=== PATIENT | male | born 1975 | race Caucasian/White ===

== ENCOUNTER 2017-11-07 15:13 | Emergency (ER) | payer MEDICAID, OTHER ==
[~2017-11-07] VITALS: Ht 193 cm; Wt 83.9 kg
[~2017-11-07 15:13] MED LIST: AMOX-999 PO; FLOR250 PO; FLUO-387 PO; [UNRECOGNIZED DRUG - CODE] PO
[2017-11-07 15:29] VITALS: BP 158/100
--- NOTE | 2017-11-07 15:33 | NUR ---
patient in no distress. not anxious at this time. dr. medeiros made aware. patient to lobby via w/c
--- NOTE | 2017-11-07 16:22 | NUR ---
watching tv in the lobby
--- NOTE | 2017-11-07 17:30 | NUR ---
TRIED TO TAKE PATIENT INSIDE TO OF BUT REFUSED.
[2017-11-07] MEDS ORDERED: HALOPERIDOL 5 MG TAB PO SCH (18:20)
[2017-11-07] MEDS ORDERED: LORazepam 1 MG TAB PO ONE (18:20)
--- NOTE | 2017-11-07 18:25 | NUR ---
PT TO RADIOLOGY VIA WHEELCHAIR
--- NOTE | 2017-11-07 18:25 | NUR ---
DENIES SUICIDAL/HOMICIDAL IDEATION DENIES AUDITORY/VISUAL HALLUCINATIONS
--- NOTE | 2017-11-07 18:26 | NUR ---
PT TO OVERFLOW 1
--- NOTE | 2017-11-07 18:35 | NUR ---
RETURNED FROM RADIOLOGY
--- NOTE | 2017-11-07 18:37 | NUR ---
HALDOL NOT AVAILABLE IN ER STOCK---HOUSE SUP IS ATTEMPTING TO LOCATE IN OTHER AREAS--MD AWARE
--- NOTE | 2017-11-07 18:50 | NUR ---
BLOOD SAMPLE COLLECTED---LAB PICKED UP
[2017-11-07 18:56] LABS: APPEARANCE,URINE CLEAR (CLEAR); BILIRUBIN,URINE NEGATIVE (NEGATIVE); BLOOD, URINE NEGATIVE (NEGATIVE); COLOR,URINE YELLOW (YELLOW); LEUKOCYTE ESTERASE ,URINE NEGATIVE (NEGATIVE); NITRITE, URINE NEGATIVE (NEGATIVE); UGLUCOSE NEGATIVE (NEGATIVE)
[2017-11-07 19:00] LABS: BARBITURATE, URINE NEG. ng/ml (NEG <=200); BENZODIAZEPINE, URINE NEG. ng/mL (NEG <=200); CANNABINOID, URINE NEG. ng/mL (NEG <=50); COCAINE, URINE NEG. ng/mL (NEG <=300); OPIATE, URINE NEG. ng/mL (NEG <=2000); PHENCYCLIDINE SCREEN,URINE NEG. ng/mL (NEG <=25); RBC,URINE 0-5 (RARE) /HPF (0-5)
[2017-11-07 19:11] VITALS: BP 161/68
[2017-11-07 19:11] LABS: ANION GAP 11.6 (8-16); CARBON DIOXIDE 28.9 mmol/L (21-32); CHLORIDE 102 mmol/L (98-107); CREATININE 0.9 mg/dL (0.7-1.3); GFR ARICAN-AMERICAN 119 mL/min (>90); GLUCOSE 106 mg/dL (74-106); POTASSIUM 3.5 mmol/L (3.5-5.1); SODIUM SERUM 139 mmol/L (136-145); UREA NITROGEN, BLOOD 12 mg/dL (7-18)
--- NOTE | 2017-11-07 19:12 | NUR ---
FOLLOWS INSTRUCTIONS WITH REDIRECTION---BECOMES LOUD AND OFFENSIVE
[2017-11-07 19:18] LABS: ASPARTATE AMINOTRANSFERASE 21 U/L (15-37); TOTAL BILIRUBIN 0.6 mg/dL (0.0-1.0)
--- NOTE | 2017-11-07 19:23 | NUR ---
PT W/C ASSISTED TO BED 2.
--- NOTE | 2017-11-07 19:28 | NUR ---
GOT REPORT FROM ANAIS DE LEON. PT. RESTING IN BED, EPISODE OF YELLING. ER MADE PISANO OF PT. STATUS.
--- NOTE | 2017-11-07 19:30 | NUR ---
PT. EPISODE OF AGGRESSIVENESS, YELLING. DR. MANNING MADE AWARE.
[2017-11-07 19:35] LABS: ACETAMINOPHEN < 0.5 ug/ml (10-30); SALICYLATE < 2.8 mg/dL (2.8-20.0)
--- NOTE | 2017-11-07 19:45 | NUR ---
PT. WALKED OUT OF THE ED, ANAIS RIBEIROBREAD SLICER MACHINE CALLED PD AT THIS TIME.
--- NOTE | 2017-11-07 19:50 | NUR ---
PATIENT ELOPED FROM FACILITY. DISCHARGE INSTRUCTIONS NOT GIVEN TO PATIENT. DR. FALL NOTIFIED.
== END 2017-11-07 19:50 | disposition left against medical advice (07) ==
LOC: MED 15:13
DX: F41.9 Anxiety disorder, unspecified (principal); F14.90 Cocaine use, unspecified, uncomplicated; F11.90 Opioid use, unspecified, uncomplicated; Z59.0 Homelessness
CPT/HCPCS: 36415; 71010; 80053; 80305; 81001; 82550; 84484; 87086; 99285; G0480; G0482; Q0092; Q0163

== ENCOUNTER 2017-11-24 19:13 | Emergency (ER) | payer OTHER, MEDICAID ==
[~2017-11-24] VITALS: Ht 193 cm; Wt 90.7 kg
[2017-11-24 19:36] VITALS: BP 130/90
--- NOTE | 2017-11-24 19:43 | NUR ---
TO LOBBY IMAN VSS. A/W BED, CHARO NOTED
[2017-11-24 19:44] VITALS: BP 130/90
--- NOTE | 2017-11-24 21:14 | NUR ---
PT TAKEN TO OF2
--- NOTE | 2017-11-24 21:18 | NUR ---
42Y M BIB SELF C/O LEFT FOOT PAIN X 2 DAYS, REQUEST FOR MED REFILL OF ZYPREXA 20MG 1 TAB HS AND DEPAKOTE 1000MG 1 TAB HS. PT DENIES ANY N/V/D, SOB, CP AT THE MOMENT. PT AAOX4. BREATHING IS UNLABORED.
[2017-11-24] MEDS ORDERED: IBUPROFEN 600 MG TAB PO ONE (22:15)
--- NOTE | 2017-11-24 22:44 | NUR ---
PT LEFT WITHTOUT DISCHARGE PAPER WORK AND PRESCRIPTION. ER MD DR SANTORO MADE AWARE
== END 2017-11-24 22:44 | disposition home or self-care (01) ==
LOC: MED 19:13
DX: S93.602A Unspecified sprain of left foot, initial encounter (principal); Z79.899 Other long term (current) drug therapy; X58.XXXA Exposure to other specified factors, initial encounter; Y93.89 Activity, other specified; Y92.89 Other specified places as the place of occurrence of the external cause; Y99.8 Other external cause status
CPT/HCPCS: 73630; 99284